=== PATIENT | female | born 1995 | race Caucasian/White ===

== ENCOUNTER 2020-08-21 14:46 | Outpatient (REF) | payer OTHER, SELFPAY ==
[2020-08-22 11:29] LABS: BV Int Neg Control Negative (Negative); BV Int Pos Control Positive (Positive)
== END 2020-08-21 14:47 | disposition home or self-care (01) ==
LOC: HO.LNP 14:46
PROVIDERS: Visit Provider Advanced Practice Midwife
DX: R10.9 Unspecified abdominal pain (principal); N83.209 Unspecified ovarian cyst, unspecified side
CPT/HCPCS: 36415; 81025; 87480; 87510; 87660; 99214

== ENCOUNTER 2020-09-08 15:11 | Outpatient (REF) | payer OTHER, SELFPAY ==
--- NOTE | 2020-09-08 | US_ITS ---
EXAMINATION: PELVIC ULTRASOUND CLINICAL INFORMATION: Pelvic pain. Perineal pain COMPARISON: Portions of a previous study 12/20/19 TECHNIQUE: Changes cutaneous pelvic ultrasound. The patient was asked to void completely and reexamined transvaginally FINDINGS: Transcutaneously scanning does not demonstrate any large mass. Small amount of free pelvic fluid. No abnormality in the region of the vaginal stripe. The estimated cervical length is 3.2 cm. The cervix appears within normal limits. The uterus is anteverted. The uterus measures approximately 10.1 x 4.4 x 5.0 cm. There is altered echotexture in the lower uterine segment. This is of the location where findings from section might occur. The endometrium is prominent measuring 1.2 cm. No focal mass or collection. No other suspicious abnormality of the myometrium. The right ovary measures approximately 3.9 x 2.0 x 1.9 cm. The estimated right ovarian volume is 8 mL. No suspicious right adnexal mass or collection. There is color signal present within the right ovary and there are some small physiologic cysts. The left ovary measures approximately 3.3 x 2.3 x 2.9 cm. The estimated left ovary volume is approximately 12 mL. There are some small likely physiologic cysts. There is color signal present within the left ovary. There is a moderate amount nonspecific simple appearing free pelvic fluid. US/US transvaginal IMPRESSION: Evidence of previous section. No suspicious mass or collection. Both ovaries visualized and are within normal limits Nonspecific free pelvic fluid. Relatively prominent but unchanged endometrium measuring approximately 1.2 cm
--- NOTE | 2020-09-08 15:20 | US_ITS ---
EXAMINATION: PELVIC ULTRASOUND CLINICAL INFORMATION: Pelvic pain. Perineal pain COMPARISON: Portions of a previous study 12/20/19 TECHNIQUE: Changes cutaneous pelvic ultrasound. The patient was asked to void completely and reexamined transvaginally FINDINGS: Transcutaneously scanning does not demonstrate any large mass. Small amount of free pelvic fluid. No abnormality in the region of the vaginal stripe. The estimated cervical length is 3.2 cm. The cervix appears within normal limits. The uterus is anteverted. The uterus measures approximately 10.1 x 4.4 x 5.0 cm. There is altered echotexture in the lower uterine segment. This is of the location where findings from section might occur. The endometrium is prominent measuring 1.2 cm. No focal mass or collection. No other suspicious abnormality of the myometrium. The right ovary measures approximately 3.9 x 2.0 x 1.9 cm. The estimated right ovarian volume is 8 mL. No suspicious right adnexal mass or collection. There is color signal present within the right ovary and there are some small physiologic cysts. The left ovary measures approximately 3.3 x 2.3 x 2.9 cm. The estimated left ovary volume is approximately 12 mL. There are some small likely physiologic cysts. There is color signal present within the left ovary. There is a moderate amount nonspecific simple appearing free pelvic fluid. US/US pelvic complete IMPRESSION: Evidence of previous section. No suspicious mass or collection. Both ovaries visualized and are within normal limits Nonspecific free pelvic fluid. Relatively prominent but unchanged endometrium measuring approximately 1.2 cm
== END 2020-09-08 15:12 | disposition home or self-care (01) ==
LOC: HO.US 15:11
PROVIDERS: Visit Provider Advanced Practice Midwife
DX: R10.2 Pelvic and perineal pain (principal)
CPT/HCPCS: 76830; 76856

== ENCOUNTER → 2020-09-12 14:15 | Outpatient (BNVA) | payer OTHER, SELFPAY | PROVIDERS: Visit Provider Advanced Practice Midwife | DX: R10.2 Pelvic and perineal pain (principal); Z71.2 Person consulting for explanation of examination or test findings | CPT/HCPCS: 99212 ==

== ENCOUNTER 2020-11-01 14:54 | Outpatient (REF) | payer OTHER, SELFPAY ==
[2020-11-01 16:57] LABS: Glucose Urine UA NEG (NEG); Leukocyte Esterase Urine NEG (NEG); Nitrite Urine NEG (NEG); Specific Gravity - Urine 1.015 (1.005-1.025); Urine Blood NEG (NEG); Urine Ketones NEG (NEG); Urine Protein NEG (NEG-TRACE)
[2020-11-01 17:03] LABS: Appearance Urine CLEAR; Color Urine YELLOW
== END 2020-11-01 14:55 | disposition home or self-care (01) ==
LOC: HO.LAB 14:54
PROVIDERS: Visit Provider Advanced Practice Midwife
DX: O34.219 Maternal care for unspecified type scar from previous cesarean delivery (principal); R35.0 Frequency of micturition; Z32.01 Encounter for pregnancy test, result positive
CPT/HCPCS: 81003; 81025; 99212

== ENCOUNTER → 2020-11-22 14:41 | Outpatient (BNVA) | payer OTHER, SELFPAY | PROVIDERS: PCP Hospitalist; Visit Provider Advanced Practice Midwife | DX: Z76.89 Persons encountering health services in other specified circumstances (principal) | CPT/HCPCS: 99212 ==

== ENCOUNTER 2020-12-06 15:08 | Outpatient (REF) | payer OTHER, SELFPAY ==
[2020-12-06 17:34] LABS: MANUAL DIFF FLAG NO
[2020-12-06 17:35] LABS: Glucose Urine UA NEG (NEG); Leukocyte Esterase Urine NEG (NEG); Nitrite Urine NEG (NEG); Specific Gravity - Urine <= 1.005 (1.005-1.025); Urine Blood NEG (NEG); Urine Ketones 15 MG/DL (NEG); Urine Protein NEG (NEG-TRACE)
[2020-12-06 17:40] LABS: Appearance Urine CLEAR; Color Urine YELLOW
[2020-12-06 17:47] LABS: Basophils Percent Auto 0.2 % (0-2); Eosinophils Absolute Auto 0.1 X10*3/uL (0.0-0.4); Eosinophils Percent Auto 0.6 % (0-4); Hematocrit 39.6 % (37-47); Hemoglobin 13.6 g/dl (12.0-16.0); Imm Gran Abs Auto 0.04 X10*3/uL (0.00-0.03); Imm Gran Pct Auto 0.4 % (0.0-0.4); Lymphocytes Absolute Auto 2.2 X10*3/uL (1.2-4.9); Lymphocytes Percent Auto 20.5 % (20-40); Mean Corpuscular HGB Conc 34.3 g/dl (31.0-35.0); Mean Corpuscular Hemoglobin 29.4 pg (27.0-33.0); Mean Corpuscular Volume 85.5 fL (80-98); Mean Platelet Volume 11.1 fL (9.4-12.3); Monocytes Absolute Auto 0.5 X10*3/uL (0.1-1.2); Monocytes Percent Auto 4.6 % (2-11); Neutrophils Percent Auto 73.7 % (45-73); Platelet Count 279 X10*3/uL (160-400); Red Blood Count 4.63 X10*6/uL (4.20-5.50); Red Cell Distribution Width 11.9 % (11.0-16.0); White Blood Count 10.9 X10*3/uL (4.8-10.8)
[2020-12-06 17:58] LABS: Amphetamine Screen Urine Not Detected (Not Detect); Barbiturates, Urine Not Detected (Not Detect); Benzodiazepines Screen Urine Not Detected (Not Detect); Cannabinoid Screen Urine Not Detected (Not Detect); Cocaine Screen Urine Not Detected (Not Detect); Opiate Screen Urine Not Detected (Not Detect); Phencyclidine Screen Urine Not Detected (Not Detect)
[2020-12-06 17:58] LABS: Glucose Random 79 mg/dL (60-115)
[2020-12-06 18:26] LABS: Syphilis Screen Nonreactive (Nonreactive)
[2020-12-07 08:42] LABS: BV Int Neg Control Negative (Negative); BV Int Pos Control Positive (Positive)
[2020-12-07 09:26] LABS: HBsAGNum1 0.65 S/CO (0.00-0.99); HIV AB/AG Nonreactive (Nonreactive); HIV Num 1 0.07 S/CO (0.00-0.99); Hepatitis B Surface Antigen Negative (Negative); ~Hepatitis C Antibody Nonreactive (Nonreactive)
[2020-12-07 09:27] LABS: Rubella IgG Antibody 9.08 Index
[2020-12-08 07:51] LABS: C. trachomatis RNA TMA NOT DETECTED (NOT DETECTED); N. gonorrhoeae RNA TMA NOT DETECTED (NOT DETECTED)
== END 2020-12-06 15:09 | disposition home or self-care (01) ==
LOC: HO.LAB 15:08
PROVIDERS: Visit Provider Advanced Practice Midwife
DX: O34.219 Maternal care for unspecified type scar from previous cesarean delivery (principal); O26.899 Other specified pregnancy related conditions, unspecified trimester; R35.0 Frequency of micturition
CPT/HCPCS: 36415; 80307; 81003; 82947; 85025; 86762; 86780; 86787; 86803; 86850; 86900; 86901; 87086; 87340; 87389; 87480; 87491; 87510; 87591; 87660; 99212

== ENCOUNTER 2020-12-06 16:28 | Outpatient (REF) | payer OTHER, SELFPAY ==
--- NOTE | 2020-12-06 16:34 | US_ITS ---
EXAMINATION: TRANSABDOMINAL PELVIC ULTRASOUND, FIRST TRIMESTER EVALUATION CLINICAL INFORMATION: No appreciation of heart tones in office. COMPARISON: Pelvic ultrasound dated 09/08/2020. TECHNIQUE: Transabdominal ultrasound was performed using grayscale, M-mode, and color Doppler imaging techniques. FINDINGS: There is a single intrauterine with crown-rump length measuring 3.59 cm, consistent with a gestational age of 10 weeks, 4 days +/-1 week. There is no evidence of subchorionic hemorrhage. The cervix is closed. Embryonic heart rate is 165. The right ovary is normal in size measuring 2.7 x 1.6 x 2.6 cm and demonstrates color flow The left ovary is normal in size measuring 3.6 x 1.5 x 2.6 cm and demonstrates color flow. Pelvic free fluid: None. US/US OB transvaginal IMPRESSION: Single intrauterine with a mean gestational age estimated by ultrasound (crown-rump length) of 10 weeks weeks 4 days +/- 1 week. Embryonic heart rate measures 165 bpm.
--- NOTE | 2020-12-06 16:34 | US_ITS ---
EXAMINATION: TRANSABDOMINAL PELVIC ULTRASOUND, FIRST TRIMESTER EVALUATION CLINICAL INFORMATION: No appreciation of heart tones in office. COMPARISON: Pelvic ultrasound dated 09/08/2020. TECHNIQUE: Transabdominal ultrasound was performed using grayscale, M-mode, and color Doppler imaging techniques. FINDINGS: There is a single intrauterine with crown-rump length measuring 3.59 cm, consistent with a gestational age of 10 weeks, 4 days +/-1 week. There is no evidence of subchorionic hemorrhage. The cervix is closed. Embryonic heart rate is 165. The right ovary is normal in size measuring 2.7 x 1.6 x 2.6 cm and demonstrates color flow The left ovary is normal in size measuring 3.6 x 1.5 x 2.6 cm and demonstrates color flow. Pelvic free fluid: None. US/US OB <= 14 weeks fetus IMPRESSION: Single intrauterine with a mean gestational age estimated by ultrasound (crown-rump length) of 10 weeks weeks 4 days +/- 1 week. Embryonic heart rate measures 165 bpm.
== END 2020-12-06 16:29 | disposition home or self-care (01) ==
LOC: HO.US 16:28
PROVIDERS: PCP Nurse Practitioner Family; Visit Provider Advanced Practice Midwife
DX: O34.219 Maternal care for unspecified type scar from previous cesarean delivery (principal); Z3A.00 Weeks of gestation of pregnancy not specified
CPT/HCPCS: 76801; 76817

== ENCOUNTER → 2020-12-13 13:02 | Outpatient (BNVA) | payer OTHER, SELFPAY | PROVIDERS: PCP Nurse Practitioner Family; Visit Provider Advanced Practice Midwife | DX: O34.219 Maternal care for unspecified type scar from previous cesarean delivery (principal) | CPT/HCPCS: 81003; 99212 ==

== ENCOUNTER 2020-12-22 11:28 | Outpatient (REF) | payer OTHER, SELFPAY ==
--- NOTE | ~2020-12-22 | US_ITS ---
EXAMINATION: OBSTETRICAL ULTRASOUND, FIRST TRIMESTER HISTORY: 25-year-old at 12.4 weeks of gestation NT screening COMPARISON: 12/06/2020 TECHNIQUE: Real time transabdominal imaging with color and M-mode Doppler. FINDINGS: A single, live IUP CRL of 65.2 mm c/w 12.1wks is noted. Heart Rate: 153 beats per minute. Normal yolk sac seen. NT was 2.3.mm. NB Present The embryo appears sonographically wnl for this GA. Both maternal ovaries are seen and appear normal. GESTATIONAL AGE: 1. Established GA: 12.4 wks 2. GA from [facility]: 12.6 wks ESTIMATED DATE OF DELIVERY: 1. Established LISA: 07/02/2021 2. LISA from [facility]: 06/30/2021 US/US OB 1T nuc measure IMPRESSION: 1. A single live IUP 2. Size equals dates 3. NT of 2.3 mm MFM Consultation: I reviewed the ultrasound findings along with significance of NT measurement. The NT of less than 3mm is generally reassuring. However, the sensitivity for T21 detection is only 60%. I reviewed the availability of serum aneuploidy screening which includes cell-free DNA and placental protein based tests. I discussed the sensitivity, false-positive rate, and other limitations associated with each test. I also reviewed the availability of invasive diagnostic tests that are associated small but definite risk of miscarriage. We also reviewed the differences between screening tests and diagnostic tests. After our discussion, she opted for the First trimester screening that is based on cell-free DNA or non-invasive testing (NIPT). The result will be faxed to your office in approximately 7 days. A follow up at 18 weeks for survey has been scheduled. Thank you very much for this referral. Majority of this visit was spent reviewing her care and counselling her in face to face time: Time spent 20 min.
== END 2020-12-22 11:29 | disposition home or self-care (01) ==
LOC: HO.US 11:28
PROVIDERS: Visit Provider Advanced Practice Midwife
DX: Z36.82 Encounter for antenatal screening for nuchal translucency (principal)
CPT/HCPCS: 76813

== ENCOUNTER → 2021-01-10 14:27 | Outpatient (BNVA) | payer OTHER, SELFPAY | PROVIDERS: Visit Provider Obstetrics & Gynecology | DX: O99.342 Other mental disorders complicating pregnancy, second trimester (principal); F41.9 Anxiety disorder, unspecified; Z3A.15 15 weeks gestation of pregnancy | CPT/HCPCS: 81003; 99212 ==

== ENCOUNTER 2021-02-02 14:32 | Outpatient (REF) | payer OTHER, SELFPAY ==
--- NOTE | ~2021-02-02 | US_ITS ---
EXAMINATION: US OBSTETRICAL CLINICAL INFORMATION: 25-year-old at 18.4 weeks of gestation Suspected anomaly COMPARISON: 12/22/2020 TECHNIQUE: Real-time transabdominal ultrasound was performed using C1-5 megahertz transducer. FINDINGS: A single, active, fetus is seen in breech presentation. The placenta is anterior without previa, and the amniotic fluid volume is wnl. MEASUREMENTS: 1. Biparietal Diameter: 4.0 cm; 18.2 wks 2. Occipital Frontal Diameter: 5.5 cm 3. Head Circumference: 15.3 cm; 18.3 wks 4. Abdominal Circumference: 13.0 cm; 18.4 wks 5. Femur Length: 2.85 cm; 18.6 wks 6. Humerus Length: 2.7 cm; 18.5 wks 7. Tibia Length: 2.6 cm; 19.2 wks 8. Ulna Length: 2.43 cm; 18.5 wks 9. Lateral ventricle: 0.63 cm 10. Cerebellum: 1.97 cm; 20.1 wks 11. Cisterna Magna: 0.3 cm 12. Nuchal Fold: 4.73 mm 13. Heart Rate: 149 beats per minute Rt ovary: normal Lt ovary: normal Cervical length 3.6 cm on T/A. GESTATIONAL AGE: 1. Established GA: 18.4 wks 2. GA from [facility]: 18.4 wks ESTIMATED DATE OF DELIVERY: 1. Established LISA: 07/02/2021 2. LISA from [facility]: 07/02/2021 ANATOMY: The evaluation of the profile, nasal bone, ventricular septum, aortic arch, 3 vessel trachea, situs and diaphragm were suboptimal due to position. The visualized anatomy includes but not limited to: 1. Cranium: Normal 2. Intracranial anatomy: cavum septum pellucidi, lateral ventricles, choroid plexus, cerebellum, posterior fossa, third and fourth ventricles. 3. face: orbits, lip/palate 4. Heart: four-chamber view of the heart, foramen ovale, pulmonary vein, left and right outflow tracts, three-vessel view, ductal arches, situs.. 5. Diaphragm: Normal 6. Abdominal wall: Normal 7. Cord Insertion: Normal 8. Spine: Cervical, thoracic, lumbar, sacral. 9. Stomach: Normal size and shape 10. Right Kidney: Normal 11. Left Kidney: Normal 12. 3 vessel cord: Normal 13. Upper extremity: Open hands, fifth digit. 14. Lower extremity: Tibia, fibula, bilateral feet. 15. Bladder: Normal 16. Genitalia: Male, patient aware US/US OB /maternal detail IMPRESSION: 1. Single, living, intrauterine with appropriate biometry. Limited survey due to position. However no abnormalities were seen in visualized anatomy A follow-up has been scheduled in 2 weeks Thank you for allowing me to participate in her care. This note was generated with a voice recognition program. Please excuse any errors which may have been overlooked during my review of this note. Sometimes these errors may affect the content or meaning of a given sentence.
== END 2021-02-02 14:33 | disposition home or self-care (01) ==
LOC: HO.US 14:32
PROVIDERS: Visit Provider Obstetrics & Gynecology
DX: O35.9XX0 Maternal care for (suspected) fetal abnormality and damage, unspecified, not applicable or unspecified (principal); Z3A.18 18 weeks gestation of pregnancy
CPT/HCPCS: 76811

== ENCOUNTER → 2021-02-07 14:32 | Outpatient (BNVA) | payer OTHER, SELFPAY | PROVIDERS: Visit Provider Obstetrics & Gynecology | DX: Z34.90 Encounter for supervision of normal pregnancy, unspecified, unspecified trimester (principal); Z3A.19 19 weeks gestation of pregnancy | CPT/HCPCS: 99212 ==

== ENCOUNTER 2021-02-16 15:06 | Outpatient (REF) | payer OTHER, SELFPAY ==
--- NOTE | ~2021-02-16 | US_ITS ---
EXAMINATION: OBSTETRICAL ULTRASOUND, Follow up HISTORY: 25-year-old at the 20.0 weeks of gestation Incomplete survey COMPARISON: 02/02/2021 TECHNIQUE: Real time transabdominal imaging with color and M-mode Doppler. PRESENTATION: Breech PLACENTA LOCATION: Anterior without previa AMNIOTIC FLUID: Normal MEASUREMENTS: 1. Biparietal Diameter: 4.6 cm; 20.0 wks 2. Head Circumference: 17.9 cm; 20.3 wks 3. Abdominal Circumference: 13.9 cm; 19.3 wks 4. Femur Length: 3.2 cm; 20.0 wks 5. Heart Rate: 146 beats per minute WEIGHT: Estimated weight is 309 grams (0 lbs 11 oz) -- 10 %. Normal views of lateral cerebral ventricle, profile, nose/lips, 4ch view, LVOT, RVOT, aortic and ductal arches, 3 vessel trachea, stomach and urinary bladder are within normal limits. GESTATIONAL AGE: 1. Established GA: 20.0 wks 2. GA from [facility]: 20.4 wks ESTIMATED DATE OF DELIVERY: 1. Established LISA: 07/02/2021 2. LISA from [facility]: 07/06/2021 US/US OB follow up IMPRESSION: 1. A single fetus with appropriate interval growth. 2. Previously limited views of the anatomy were seen as listed above. No abnormalities were noted in visualized anatomy. 3. This completes the survey. I reviewed the limitations of ultrasound in diagnosing aneuploidy and other congenital abnormalities. Amniocentesis was again reviewed and she declined. She was informed that the baseline instance of congenital abnormalities and defects in the general population is approximately 3-5%. Not all these conditions are diagnosable in utero. RECOMMENDATIONS: 1. f/u PRN Thank you very much for this referral. Total time 20 minutes. The time spent was devoted to counseling the patient about the disease and diagnosis, coordinating care including reviewing her records, pertinent lab data and studies, as well as discussing diagnostic evaluation and workup, plan therapeutic interventions and future disposition of care. This includes any additional research needed to obtain further information in formulating the plan of care of this patient. This note was generated with a voice recognition program. Please excuse any errors which may have been overlooked during my review of this note. Sometimes these errors may affect the content or meaning of a given sentence.
== END 2021-02-16 15:07 | disposition home or self-care (01) ==
LOC: HO.US 15:06
PROVIDERS: Visit Provider Obstetrics & Gynecology
DX: Z36.3 Encounter for antenatal screening for malformations (principal)
CPT/HCPCS: 76816

== ENCOUNTER 2021-03-07 14:44 | Outpatient (REF) | payer OTHER, SELFPAY | END 2021-03-07 14:45 | disposition home or self-care (01) | LOC: HO.LAB 14:44 | PROVIDERS: PCP Nurse Practitioner Family; Visit Provider Obstetrics & Gynecology | DX: O99.282 Endocrine, nutritional and metabolic diseases complicating pregnancy, second trimester (principal); E28.2 Polycystic ovarian syndrome; Z3A.23 23 weeks gestation of pregnancy | CPT/HCPCS: 99212 ==

== ENCOUNTER → 2021-04-19 15:19 | Outpatient (BNVA) | payer OTHER, SELFPAY | PROVIDERS: Visit Provider Obstetrics & Gynecology | DX: Z34.83 Encounter for supervision of other normal pregnancy, third trimester (principal); Z3A.29 29 weeks gestation of pregnancy | CPT/HCPCS: 99212 ==

== ENCOUNTER 2021-05-01 14:27 | Outpatient (REF) | payer OTHER, SELFPAY ==
[2021-05-01 16:33] LABS: MANUAL DIFF FLAG NO
[2021-05-01 16:51] LABS: Basophils Percent Auto 0.2 % (0-2); Eosinophils Absolute Auto 0.2 X10*3/uL (0.0-0.4); Eosinophils Percent Auto 1.8 % (0-4); Hematocrit 38.8 % (37-47); Hemoglobin 12.9 g/dl (12.0-16.0); Imm Gran Abs Auto 0.11 X10*3/uL (0.00-0.03); Imm Gran Pct Auto 0.9 % (0.0-0.4); Lymphocytes Absolute Auto 2.6 X10*3/uL (1.2-4.9); Lymphocytes Percent Auto 20.4 % (20-40); Mean Corpuscular HGB Conc 33.2 g/dl (31.0-35.0); Mean Corpuscular Hemoglobin 29.6 pg (27.0-33.0); Mean Platelet Volume 10.7 fL (9.4-12.3); Monocytes Absolute Auto 0.9 X10*3/uL (0.1-1.2); Monocytes Percent Auto 6.8 % (2-11); Neutrophils Absolute Auto 8.7 X10*3/uL (2.0-8.3); Neutrophils Percent Auto 69.9 % (45-73); Platelet Count 248 X10*3/uL (160-400); Red Blood Count 4.36 X10*6/uL (4.20-5.50); White Blood Count 12.5 X10*3/uL (4.8-10.8)
[2021-05-01 17:06] LABS: Glucose 1 Hour PP 50gm Dose 74 mg/dL (60-140)
[2021-05-02 08:00] LABS: Syphilis Screen Nonreactive (Nonreactive)
== END 2021-05-01 14:28 | disposition home or self-care (01) ==
LOC: HO.LAB 14:27
PROVIDERS: Visit Provider Obstetrics & Gynecology
DX: Z34.90 Encounter for supervision of normal pregnancy, unspecified, unspecified trimester (principal)
CPT/HCPCS: 36415; 85025; 86780

== ENCOUNTER → 2021-05-03 08:56 | Outpatient (BNVA) | payer OTHER, SELFPAY | PROVIDERS: Visit Provider Advanced Practice Midwife | CPT/HCPCS: 59025; 99212 ==

== ENCOUNTER 2021-05-03 10:27 | Outpatient (REF) | payer OTHER, SELFPAY ==
--- NOTE | ~2021-05-03 | US_ITS ---
EXAMINATION: US OBSTETRICAL FOLLOW UP WITH BIOPHYSICAL PROFILE CLINICAL INFORMATION: Small for dates, decreased movements. Follow-up. COMPARISON: Obstetrical ultrasound 02/16/2021, 02/02/2021, and initial dating ultrasound 12/06/2020. TECHNIQUE: Real time transabdominal imaging with color and M-mode Doppler. POSITION: Cephalic PLACENTA: Anterior AMNIOTIC FLUID INDEX: 11.7 cm MEASUREMENTS: The previously determined ultrasound gestational age is 07/02/2021. This would project today to a of 31 weeks 3 days today. biometric measurements are as follows: Biparietal Diameter: 7.8 cm (31 weeks 4 days) Head Circumference: 28.8 cm (31 weeks 5 days) Abdominal Circumference: 26.8 cm (31 weeks 0 days) Femur Length: 5.98 cm (31 weeks 1 day) The standard deviation for the above measurements is +/- 3 weeks. ESTIMATED WEIGHT: The EFW is 1675 grams +/- 245 grams (3 lbs 11 oz +/- 9 oz). This is at the 25th percentile. Prior exam EFW was 309 grams (0 lbs 11 oz) -- 10 %. BIOPHYSICAL PROFILE: Biophysical profile is performed over 30 minutes with assessment of breathing, gross body movement, tone, and qualitative amniotic fluid volume. Each matrix is scored 0 or 2, depending if the metric is present. Maximum total score possible is 8. Motion: 2 Tone: 2 Breathin Amniotic Fluid: 2 Total score: 8 HR: 134 bpm US/US OB follow up IMPRESSION: 1. Single intrauterine gestation in cephalic position with anterior placenta. 2. EFW: 1675 grams +/- 245 grams (3 lbs 11 oz +/- 9 oz). This is at the 25th percentile. 3. MERLYN: 11.7 cm. 4. BPP score: 8 (scale 0-8).
== END 2021-05-03 10:28 | disposition home or self-care (01) ==
LOC: HO.US 10:27
PROVIDERS: Visit Provider Advanced Practice Midwife
DX: O36.5930 Maternal care for other known or suspected poor fetal growth, third trimester, not applicable or unspecified (principal); Z3A.31 31 weeks gestation of pregnancy
CPT/HCPCS: 76816

== ENCOUNTER → 2021-05-17 09:02 | Outpatient (BNVA) | payer OTHER, SELFPAY | PROVIDERS: Visit Provider Advanced Practice Midwife | DX: O36.5930 Maternal care for other known or suspected poor fetal growth, third trimester, not applicable or unspecified (principal); Z3A.33 33 weeks gestation of pregnancy | CPT/HCPCS: 81003; 99212 ==

== ENCOUNTER → 2021-05-31 08:15 | Outpatient (BNVA) | payer OTHER, SELFPAY | PROVIDERS: Visit Provider Advanced Practice Midwife | DX: O36.5930 Maternal care for other known or suspected poor fetal growth, third trimester, not applicable or unspecified (principal); Z3A.35 35 weeks gestation of pregnancy | CPT/HCPCS: 99212 ==

== ENCOUNTER 2021-06-07 08:15 | Outpatient (REF) | payer OTHER, SELFPAY ==
[2021-06-08 11:47] LABS: CT PCR NOT DETECTED (Not Detect.); NG PCR NOT DETECTED (Not Detect.)
== END 2021-06-07 08:16 | disposition home or self-care (01) ==
LOC: HO.LAB 08:15
PROVIDERS: Visit Provider Obstetrics & Gynecology
DX: O99.283 Endocrine, nutritional and metabolic diseases complicating pregnancy, third trimester (principal); E28.2 Polycystic ovarian syndrome; O34.219 Maternal care for unspecified type scar from previous cesarean delivery; Z3A.36 36 weeks gestation of pregnancy
CPT/HCPCS: 87081; 87147; 87491; 87591; 99212

== ENCOUNTER 2021-06-08 08:55 | Outpatient (REF) | payer OTHER, SELFPAY ==
--- NOTE | ~2021-06-08 | US_ITS ---
EXAMINATION: OBSTETRICAL ULTRASOUND, Follow up HISTORY: 26-year-old at 36.4 weeks of gestation Size date discrepancy History of section COMPARISON: 05/03/2021 TECHNIQUE: Real time transabdominal imaging with color and M-mode Doppler. PRESENTATION: Vertex PLACENTA LOCATION: Anterior without previa. The inferior edge of the placenta ends well above the lower uterine segment. No sonographic stigmata for placenta accreta noted AMNIOTIC FLUID: Normal MEASUREMENTS: 1. Biparietal Diameter: 8.4 cm; 33.6 wks 2. Head Circumference: 32.3 cm; 36.4 wks 3. Abdominal Circumference: 31.43 cm; 35.3 wks 4. Femur Length: 6.7 cm; 34.3 wks 5. Heart Rate: 144 beats per minute WEIGHT: EFW: 2584 grams (5 lbs 11 oz) -- 17 %. BIOPHYSICAL PROFILE: Motion: 2 Tone: 2 Breathin Amniotic Fluid: 2 Total score: 8/8 UA Doppler showed SD ratio of 2.2. GESTATIONAL AGE: 1. Established GA: 36.4 wks 2. GA from [facility]: 35.1 wks ESTIMATED DATE OF DELIVERY: 1. Established LISA: 07/02/2021 2. LISA from [facility]: 07/12/2021 US/US OB follow up IMPRESSION: 1. A single active fetus is in vertex presentation 2. Size equals dates 3. Reassuring biophysical profile 4. No sonographic suggestion of placenta accreta. Thank you very much for this referral. This note was generated with a voice recognition program. Please excuse any errors which may have been overlooked during my review of this note. Sometimes these errors may affect the content or meaning of a given sentence.
--- NOTE | ~2021-06-08 | US_ITS ---
EXAMINATION: OBSTETRICAL ULTRASOUND, Follow up HISTORY: 26-year-old at 36.4 weeks of gestation Size date discrepancy History of section COMPARISON: 05/03/2021 TECHNIQUE: Real time transabdominal imaging with color and M-mode Doppler. PRESENTATION: Vertex PLACENTA LOCATION: Anterior without previa. The inferior edge of the placenta ends well above the lower uterine segment. No sonographic stigmata for placenta accreta noted AMNIOTIC FLUID: Normal MEASUREMENTS: 1. Biparietal Diameter: 8.4 cm; 33.6 wks 2. Head Circumference: 32.3 cm; 36.4 wks 3. Abdominal Circumference: 31.43 cm; 35.3 wks 4. Femur Length: 6.7 cm; 34.3 wks 5. Heart Rate: 144 beats per minute WEIGHT: EFW: 2584 grams (5 lbs 11 oz) -- 17 %. BIOPHYSICAL PROFILE: Motion: 2 Tone: 2 Breathin Amniotic Fluid: 2 Total score: 8/8 UA Doppler showed SD ratio of 2.2. GESTATIONAL AGE: 1. Established GA: 36.4 wks 2. GA from [facility]: 35.1 wks ESTIMATED DATE OF DELIVERY: 1. Established LISA: 07/02/2021 2. LISA from [facility]: 07/12/2021 US/US OB velocimetry umbilical ar IMPRESSION: 1. A single active fetus is in vertex presentation 2. Size equals dates 3. Reassuring biophysical profile 4. No sonographic suggestion of placenta accreta. Thank you very much for this referral. This note was generated with a voice recognition program. Please excuse any errors which may have been overlooked during my review of this note. Sometimes these errors may affect the content or meaning of a given sentence.
== END 2021-06-08 08:56 | disposition home or self-care (01) ==
LOC: HO.US 08:55
PROVIDERS: Visit Provider Advanced Practice Midwife
DX: O36.5930 Maternal care for other known or suspected poor fetal growth, third trimester, not applicable or unspecified (principal)
CPT/HCPCS: 76816; 76820

== ENCOUNTER → 2021-06-13 11:00 | Outpatient (BNVA) | payer OTHER, SELFPAY | PROVIDERS: Visit Provider Obstetrics & Gynecology | DX: Z34.83 Encounter for supervision of other normal pregnancy, third trimester (principal); Z3A.37 37 weeks gestation of pregnancy | CPT/HCPCS: 99212 ==

== ENCOUNTER → 2021-06-26 13:23 | Outpatient (BNVA) | payer OTHER, SELFPAY | PROVIDERS: Visit Provider Advanced Practice Midwife | DX: O99.283 Endocrine, nutritional and metabolic diseases complicating pregnancy, third trimester (principal); O34.219 Maternal care for unspecified type scar from previous cesarean delivery; Z3A.39 39 weeks gestation of pregnancy | CPT/HCPCS: 81003; 99212 ==

== ENCOUNTER → 2021-07-09 11:08 | Outpatient (BNVA) | payer OTHER, SELFPAY | PROVIDERS: Visit Provider Advanced Practice Midwife | DX: Z39.2 Encounter for routine postpartum follow-up (principal); Z39.1 Encounter for care and examination of lactating mother | CPT/HCPCS: 99212 ==

== ENCOUNTER → 2021-08-20 10:43 | Outpatient (BNVA) | payer OTHER, SELFPAY | PROVIDERS: Visit Provider Advanced Practice Midwife | DX: Z39.2 Encounter for routine postpartum follow-up (principal); Z39.1 Encounter for care and examination of lactating mother; Z30.011 Encounter for initial prescription of contraceptive pills; E28.2 Polycystic ovarian syndrome | CPT/HCPCS: 99212 ==

== ENCOUNTER 2021-12-04 13:36 | Outpatient (REF) | payer OTHER, SELFPAY ==
[2021-12-05 05:13] LABS: CT PCR NOT DETECTED (Not Detect.); NG PCR NOT DETECTED (Not Detect.)
[2021-12-05 08:34] LABS: BV Int Neg Control Negative (Negative); BV Int Pos Control Positive (Positive)
== END 2021-12-04 13:37 | disposition home or self-care (01) ==
LOC: HO.LAB 13:36
PROVIDERS: Visit Provider Obstetrics & Gynecology
DX: R10.2 Pelvic and perineal pain (principal); N91.2 Amenorrhea, unspecified; Z30.09 Encounter for other general counseling and advice on contraception
CPT/HCPCS: 87480; 87491; 87510; 87591; 87660; 99212

== ENCOUNTER 2021-12-20 16:09 | Outpatient (REF) | payer OTHER, SELFPAY ==
--- NOTE | ~2021-12-20 | US_ITS ---
EXAMINATION: US PELVIS CLINICAL INFORMATION: Pelvic and perineal pain. COMPARISON: None TECHNIQUE: Ultrasound of the pelvis is performed using both transabdominal and transvaginal transducers along with Doppler. Transvaginal imaging is performed due to inadequate visualization transabdominally. FINDINGS: Uterus: The uterus is anteverted, anteflexed and measures 8.1 cm in length, 4.0 cm in AP and 5.2 cm in transverse dimension. The double wall endometrial thickness is 0.6 mm. The uterus is smooth in contour and has normal myometrial echogenicity. No visible fibroid. Adnexa: Both ovaries are visualized. There is normal color flow to the adnexa. There is no ovarian torsion. There is no pelvic ascites or fluid collection. Right ovary measures 4.3 x 2.0 x 2.3 cm. 10.4 mL. There are multiple small ovarian follicles. Left ovary measures 3.4 x 2.2 x 2.2 cm. 8.6 mL. There is anechoic cyst with septation measuring 1.0 x 1.2 x 0.9 cm. There is no free fluid in the cul-de-sac. US/US pelvic and transvaginal IMPRESSION: Bilateral ovarian cysts. Unremarkable uterus. There is no free fluid in the cul-de-sac.
== END 2021-12-20 16:10 | disposition home or self-care (01) ==
LOC: HO.US 16:09
PROVIDERS: Visit Provider Obstetrics & Gynecology
DX: R10.2 Pelvic and perineal pain (principal)
CPT/HCPCS: 76830; 76856

== ENCOUNTER → 2022-01-09 14:54 | Outpatient (BNVA) | payer OTHER, SELFPAY | PROVIDERS: Visit Provider Obstetrics & Gynecology ==

== ENCOUNTER 2023-06-12 13:35 | Outpatient (AMB) | payer OTHER, SELFPAY ==
--- NOTE | 2023-06-12 13:36 | A.OFFVIS_ITS ---
Intake Vital Signs 06/12/23 13:45 Height 5 ft 4 in Weight 174 lb BMI 29.9 BP 120/60 Intake Visit Reasons: Pelvic pain Invasive Cardiovascular Technologist Required: No Information Interpreted: non-clinical & clinical Sales Center Manager: Sales Center Manager Present (Aidyn) Allergies No Known Allergies Allergy (Verified 06/12/23 13:46) Is last menstrual period known: Yes Last menstrual period: 06/06/23 Post menopausal: No HPI HPI Comments History of Present Illness Details The patient is presenting with abnormal menstrual cycle associated with bilateral pelvic pain in patient heavy growth, no nipple discharge started few months ago. It's intermittent in nature lasting few seconds and occurs 3x/day. it is associated with constipation, dysuria, frequency incontinence, no n/v, no feverishness PFSH Medical History (Updated 06/12/23 @ 14:01 by Earle Feliciano MD) PCOS (polycystic ovarian syndrome) Surgical History (Updated 06/12/23 @ 13:48 by RALPH Zavala) Hx of section Hx of wisdom tooth extraction Family History Paternal Grandmother Hx of ovarian cancer Paternal Grandfather Hx of cancer of lung Maternal Grandmother No problems noted. Maternal Grandfather Hx of cancer of lung Social History Alcohol intake: current Alcohol intake frequency: a few times a month Alcohol type: wine Patient Tobacco Use Status: Never used Tobacco Current occupation: stay at home mom Current occupational exposures/hazards: No Female Reproductive History Menstrual Age of Menarche: 14 Duration of menses: 3-5 days Date of last menstrual period: 06/06/23 control method: none Total pregnancies: 4 Full term: 2 Number of Living Children: 2 Ab spontaneous: 2 Date of last pap smear: 01/07/19 (negative) Review of Systems Const All systems reviewed & are unremarkable except as noted in HPI and below Card Reports as per HPI Resp Reports as per HPI GI Reports as per HPI and Reports no additional complaints Reports as per HPI Physical Exam Vital Signs: Last Vital Signs BP 120/60 06/12/23 13:45 BMI result Body Mass Index 29.9 Const General: cooperative, healthy appearing and comfortable Chest Chest palpation & inspection: normal inspection of the chest and normal palpation of entire chest wall Breast/axilla inspection: normal inspection of the breasts and normal inspection of the axillae Breast/axilla palpation: normal palpation of the breasts, normal palpation of the axillae and no axillary lymphadenopathy Resp Effort & Inspection: normal respiratory effort Auscultation: clear to auscultation bilaterally Percussion: percussion normal Cardio Palpation: normal PMI Rate: regular rate Rhythm: regular rhythm Heart sounds: no murmurs and no rubs Peripheral pulses: Peripheral pulses 2+ throughout GI Inspection: Yes normal to inspection Palpation (GI): Soft to palpation, nontender, no guarding, not rigid and No hepatosplenomegaly present Percussion: Yes normal to percussion Auscultation: normal bowel sounds Rectal Exam - Female: deferred General: Yes no CVA tenderness External Female Exam: normal external appearance and normal appearance of the urethra Speculum Exam - Vagina: normal appearance of the vagina, normal palpation, no lesions and no masses Speculum Exam - Cervix: normal appearance of the cervix, normal palpation, no lesions, no masses and nontender Bimanual exam- vagina & uterus: normal bimanual exam, normal palpation, uterine size normal, normal palpation, uterine shape normal, No Cervical tenderness present and non-tender Bimanual Exam- Adnexa, other: normal adnexae Back/Spine/Pelvis Back: no CVA tenderness Assessment & Plan Assessment & Plan (1) Pelvic pain: Code(s): R10.2 - Pelvic and perineal pain Plan: Urine dip and test done in the office were both negative. GC and chlamydia taken and pelvic ultrasound ordered. Discussed with the patient the differential diagnosis of pelvic pain including but not limited to adnexal, uterine masses, pelvic infections (PID), GI the (Irritable bowel syndrome, diverticulitis, others), musculoskeletal, myofascial pain abdominal wall , adhesions, endometriosis, psychological and others causes. Will check results and treat accordingly. All questions answered, the patient verbalized understanding. Instructed the patient to schedule follow-up appointment in 2 weeks (2) Abnormal uterine bleeding (AUB): Comment: hirsutism r/o pcos Code(s): N93.9 - Abnormal uterine and vaginal bleeding, unspecified Plan: Pap smear done, GC and chlamydia taken CBC, TSH, HCG, prolactin, 17 hydroxyprogesterone, testosterone total free and pelvic ultrasound ordered. Discussed with the patient the different causes of abnormal bleeding including thyroid disorders, uterine and ovarian pathology, endometrial hyperplasia, carcinoma and other potential causes. Discussed with the patient the work up including CBC (to r/o anemia), TSH, pelvic Ultrasound, endometrial biopsy to r/o endometrial pathology. All questions answered and the patient verbalized understanding. Instructed the patient to schedule an appointment for an endometrial biopsy in 2 weeks. Orders: Orders 17 Hydroxyprogesterone Today L68.0 - Hirsutism Follicle Stimulating Hormone Today N93.9 - Abnormal uterine and vaginal bleeding, unspecified HCG Quantitative Today N93.9 - Abnormal uterine and vaginal bleeding, unspecified Lutenizing Hormone Today N93.9 - Abnormal uterine and vaginal bleeding, unspecified Prolactin Today N93.9 - Abnormal uterine and vaginal bleeding, unspecified Testosterone, Free/Total Today L68.0 - Hirsutism TSH reflex Free T4 Today N93.9 - Abnormal uterine and vaginal bleeding, unspecified Complete Blood Count no Diff Today N93.9 - Abnormal uterine and vaginal bleeding, unspecified US pelvic and transvaginal Today N93.9 - Abnormal uterine and vaginal bleeding, unspecified Coding Level of Care Code Est Pt Level 3 (08187) Diagnoses Pelvic pain R10.2 Abnormal uterine bleeding (AUB) N93.9
[2023-06-12 13:45] VITALS: BP 120/60; BMI 29.9
== END 2023-06-12 14:43 | disposition home or self-care (01) ==
LOC: HO.HWS 13:35
PROVIDERS: Visit Provider Obstetrics & Gynecology
DX: R10.2 Pelvic and perineal pain (principal); N93.9 Abnormal uterine and vaginal bleeding, unspecified; Z32.02 Encounter for pregnancy test, result negative
CPT/HCPCS: 99213

== ENCOUNTER 2023-06-12 13:35 | Outpatient (REF) | payer OTHER, SELFPAY ==
[2023-06-12 18:06] LABS: CT PCR NOT DETECTED (Not Detect.); NG PCR NOT DETECTED (Not Detect.)
== END 2023-06-12 13:36 | disposition home or self-care (01) ==
LOC: HO.LNP 13:35
PROVIDERS: Visit Provider Obstetrics & Gynecology
DX: Z12.4 Encounter for screening for malignant neoplasm of cervix (principal); Z11.3 Encounter for screening for infections with a predominantly sexual mode of transmission; R10.2 Pelvic and perineal pain; N93.9 Abnormal uterine and vaginal bleeding, unspecified
CPT/HCPCS: 0353U; 81003; 81025; 88142; 99212

== ENCOUNTER 2023-06-19 14:15 | Outpatient (REF) | payer OTHER, SELFPAY ==
--- NOTE | ~2023-06-19 | US_ITS ---
EXAMINATION: US PELVIS CLINICAL INFORMATION: Abnormal uterine and vaginal bleeding. COMPARISON: Pelvic ultrasound 12/20/2021 TECHNIQUE: Ultrasound of the pelvis is performed using both transabdominal and transvaginal transducers along with Doppler. Transvaginal imaging is performed due to inadequate visualization transabdominally. FINDINGS: Uterus: The uterus is anteverted and measures 9.6 x 4.6 x 5.0 cm. The double wall endometrial thickness is 0.5 mm. The uterus is smooth in contour and has normal myometrial echogenicity. No visible fibroid. Adnexa: Both ovaries are visualized. There is normal color flow to the adnexa. There is no ovarian torsion. There is no pelvic ascites or fluid collection. Right ovary measures 4.5 x 3.0 x 2.0 cm. 14.1 Left ovary measures 3.4 x 2.8 x 2.2 cm. 11.0 US/US pelvic and transvaginal IMPRESSION: Normal pelvic ultrasound.
== END 2023-06-19 14:16 | disposition home or self-care (01) ==
LOC: HO.US 14:15
PROVIDERS: Visit Provider Obstetrics & Gynecology
DX: N93.9 Abnormal uterine and vaginal bleeding, unspecified (principal)
CPT/HCPCS: 76830; 76856